=== PATIENT | female | born 1975 | race Caucasian/White ===

== ENCOUNTER → 2016-11-25 | Outpatient (CLI) | payer OTHER ==
[~2016-11-25] MED LIST: ADVIL 200MG TA200 MG PO; AFRIN NASAL SPR15 M1 NS; ALBUTEROL0.09 MG/A1 IH; AMOXICILLIN 50500 MG PO; FORTAMET1000 MG PO; GLUCOPHAGE500 MG/TAB PO; IBU800 M1 PO; LEVEMIR100 U/ML SC; LORTAB 2.5/5001 TAB; NOVOLOG FLEX100 U/ML SC; PERCOCET 325 MG1 TA2 PO; PROVENTIL0.09 MG/A1 IH; RESTORIL 1515 MG/CAP PO; SYMBICORT1 AE1; VENTOLIN0.09 MG IH; [UNRECOGNIZED DRUG - OTHER]
== END ==
LOC: COL.RAD 07:04
DX: R19.04 Left lower quadrant abdominal swelling, mass and lump (principal)
CPT/HCPCS: A9585

== ENCOUNTER 2017-02-06 08:19 | Day surgery (SDC) | payer OTHER ==
[2017-02-04 16:54] LABS: BASO # 0.1 (0.0-0.2); BASO % 0.6 % (0.0-2.0); EOS # 0.6 (0.0-0.7); EOS % 5.4 % (0-4.0); GRAN # 6.5 (1.4-6.5); GRAN % 63.5 % (42.2-75.2); HEMATOCRIT 37.6 % (37.0-47.0); HEMOGLOBIN 12.5 g/dl (12.5-16.0); LYMPH # 2.6 (1.2-3.4); LYMPH % 25.4 % (20.0-51.0); MEAN CELL VOLUME 86 fl (80.0-100.0); MEAN CORPUSCULAR HEMOGLOBIN 29 pg (27.0-31.0); MEAN CORPUSCULAR HGB CONC 33 g/dl (33.0-37.0); MEAN PLATELET VOLUME 8.7 fl (7.4-10.4); MONO # 0.5 (0.1-0.6); MONO % 4.8 % (1.7-9.3); PLATELET COUNT 398 K/mm3 (130-400); RED BLOOD COUNT 4.36 M/mm3 (4.10-5.30); REDCELL DISTRIBUTION WIDTH-CV 13.8 % (11.5-14.5); WHITE BLOOD COUNT 10.2 K/mm3 (4.8-10.8)
[2017-02-04 17:01] LABS: PH 5 (5-8); SQUAMOUS EPITHELIAL 0-2 /hpf; URINE APPEARANCE Clear; URINE BACTERIA None Seen /hpf; URINE BILIRUBIN Negative (NEGATIVE); URINE BLOOD Negative (NEGATIVE); URINE COLOR Yellow; URINE GLUCOSE 3+ (NEGATIVE); URINE KETONE Negative (NEGATIVE); URINE RBC 0-2 /hpf; URINE UROBILINOGEN Negative (NEGATIVE); URINE WBC 0-2 /hpf
[2017-02-04 17:03] LABS: ADJUSTED CALCIUM 9.3 mg/dL (8.4-10.2); ALBUMIN 4.1 gm/dL (3.5-5.0); BILIRUBIN,TOTAL 0.6 mg/dL (0.0-1.0); CALCIUM 9.4 mg/dL (8.4-10.2); CREATININE, serum 1.03 mg/dL (0.52-1.25); POTASSIUM 3.9 mmol/L (3.4-5.0); TOTAL PROTEIN 7.9 gm/dL (6.4-8.2)
[2017-02-06] VITALS (9 sets, daily range): BP systolic 106–155; BP diastolic 55–87; PULSE 67–82; TEMP 98.2–99
[~2017-02-06] VITALS: Ht 165.1 cm; Wt 80.5 kg
[~2017-02-06 08:19] MED LIST changes: -AFRIN NASAL SPR15 M1 NS; -GLUCOPHAGE500 MG/TAB PO; -IBU800 M1 PO; -PERCOCET 325 MG1 TA2 PO; -PROVENTIL0.09 MG/A1 IH
[2017-02-06] MEDS ORDERED: GLUCOPHAGE500 MG/TAB PO (09:55)
[2017-02-06] MEDS ORDERED: PROVENTIL0.09 MG/A1 IH (09:56)
[2017-02-06] MEDS ORDERED: AFRIN NASAL SPR15 M1 NS (09:57)
[2017-02-06] MEDS ORDERED: IBU800 M1 PO (12:11)
[2017-02-06] MEDS ORDERED: PERCOCET 325 MG1 TA2 PO (12:11)
[2017-02-07 01:46] VITALS: BP 107/63; PULSE 73; TEMP 97.9
[2017-02-07 05:11] VITALS: BP 106/58; PULSE 73; TEMP 98.6
[2017-02-07 09:08] VITALS: BP 114/74; PULSE 77; TEMP 98.2
== END 2017-02-07 10:29 | disposition home or self-care (01) ==
LOC: SDCO 08:19 → SURG 12:55 → SDCO 02-07 10:29
PROVIDERS: Obstetrics & Gynecology
DX: D27.1 Benign neoplasm of left ovary (principal); N83.8 Other noninflammatory disorders of ovary, fallopian tube and broad ligament
CPT/HCPCS: OP; A9284; J0690; J1100; J1815; J1885; J2270; J2405; J2550; J2704; J2710; J3010; J7120

== ENCOUNTER → 2017-07-23 | Outpatient (CLI) | payer SELFPAY ==
[~2017-07-23] MED LIST changes: +AFRIN NASAL SPR15 M1 NS; +GLUCOPHAGE500 MG/TAB PO; +IBU800 M1 PO; +PERCOCET 325 MG1 TA2 PO; +PROVENTIL0.09 MG/A1 IH
== END ==
LOC: SUN.DIA 09:52
DX: E11.9 Type 2 diabetes mellitus without complications (principal); E78.5 Hyperlipidemia, unspecified; I10 Essential (primary) hypertension; E66.9 Obesity, unspecified; Z68.29 Body mass index [BMI] 29.0-29.9, adult; Z71.3 Dietary counseling and surveillance
CPT/HCPCS: G0108

== ENCOUNTER 2018-01-23 10:06 | Emergency (ER) | payer SELFPAY ==
[~2018-01-23] VITALS: Ht 165.1 cm; Wt 86.4 kg
[2018-01-23 10:09] VITALS: BP 141/78; TEMP 100.4
[2018-01-23] MEDS ORDERED: PEN-VEE K500 MG PO (11:01)
[2018-01-23 11:13] VITALS: PULSE 104
== END 2018-01-23 11:14 | disposition home or self-care (01) ==
LOC: COL.ER 10:06
DX: J02.0 Streptococcal pharyngitis (principal); J45.909 Unspecified asthma, uncomplicated; E11.9 Type 2 diabetes mellitus without complications; Z79.84 Long term (current) use of oral hypoglycemic drugs

== ENCOUNTER 2018-11-27 23:03 | Emergency (ER) | payer SELFPAY ==
[~2018-11-27] VITALS: Ht 167.6 cm; Wt 81.4 kg
[~2018-11-27 23:03] MED LIST changes: +PEN-VEE K500 MG PO
[2018-11-27 23:07] VITALS: TEMP 99.4
[2018-11-27 23:45] LABS: BASO # 0.1 (0.0-0.2); BASO % 0.4 % (0.0-2.0); EOS # 0.1 (0.0-0.7); EOS % 0.7 % (0-4.0); GRAN # 8.7 (1.4-6.5); GRAN % 71.2 % (42.2-75.2); HEMATOCRIT 42.8 % (37.0-47.0); HEMOGLOBIN 14.3 g/dl (12.5-16.0); LYMPH # 2.4 (1.2-3.4); LYMPH % 19.2 % (20.0-51.0); MEAN CELL VOLUME 87 fl (80.0-100.0); MEAN CORPUSCULAR HEMOGLOBIN 29 pg (27.0-31.0); MEAN CORPUSCULAR HGB CONC 33 g/dl (33.0-37.0); MEAN PLATELET VOLUME 8.8 fl (7.4-10.4); PLATELET COUNT 330 K/mm3 (130-400); RED BLOOD COUNT 4.94 M/mm3 (4.10-5.30); REDCELL DISTRIBUTION WIDTH-CV 13.2 % (11.5-14.5)
[2018-11-27] MEDS ORDERED: ASPIRIN 32325 MG/TAB PO (23:56)
[2018-11-27] MEDS ORDERED: LANTUS SOLOS100 U/ML SQ ×2 (23:57→23:58)
[2018-11-27] MEDS ORDERED: AZO URINARY PAI95 MG (23:57)
[2018-11-27 23:58] LABS: ALBUMIN 4.2 gm/dL (3.5-5.0); BILIRUBIN,TOTAL 0.6 mg/dL (0.0-1.0); CALCIUM 9.6 mg/dL (8.4-10.2); CREATININE, serum 0.56 mg/dL (0.52-1.25); POTASSIUM 3.8 mmol/L (3.4-5.0); TOTAL PROTEIN 8.3 gm/dL (6.4-8.2)
[2018-11-28 00:13] LABS: COLLECTION METHOD CLEAN CATCH
[2018-11-28 00:25] LABS: MUCOUS Present /lpf; PH 5 (5-8); SQUAMOUS EPITHELIAL 0-2 /hpf; URINE APPEARANCE Cloudy; URINE BACTERIA Rare /hpf; URINE BILIRUBIN Negative (NEGATIVE); URINE BLOOD Negative (NEGATIVE); URINE COLOR Amber; URINE GLUCOSE 3+ (NEGATIVE); URINE KETONE Negative (NEGATIVE); URINE LEUKOCYTE ESTERASE 1+ (NEGATIVE); URINE NITRATE Positive (NEGATIVE); URINE PROTEIN(semi-quant) 2+ (NEGATIVE); URINE RBC 20-50 /hpf; URINE UROBILINOGEN >=4.0 mg/dL (NEGATIVE)
[2018-11-28] MEDS ORDERED: CEFTIN500 MG PO (02:12)
[2018-11-28] MEDS ORDERED: NORCO 325 MG-51 TAB PO (02:13)
[2018-11-28] MEDS ORDERED: ZOFRAN ODT4 MG PO (02:13)
[2018-11-28 02:49] VITALS: BP 121/72; PULSE 99
== END 2018-11-28 02:49 | disposition home or self-care (01) ==
LOC: COL.ER 23:03
PROVIDERS: Emergency Medicine
DX: N39.0 Urinary tract infection, site not specified (principal); N12 Tubulo-interstitial nephritis, not specified as acute or chronic; E11.9 Type 2 diabetes mellitus without complications; Z98.51 Tubal ligation status; Z79.4 Long term (current) use of insulin; Z79.82 Long term (current) use of aspirin
CPT/HCPCS: J0696; J2405; J3010; J7030; Q9967

== ENCOUNTER → 2018-12-15 | Outpatient (CLI) | payer SELFPAY ==
[~2018-12-15] MED LIST changes: +ASPIRIN 32325 MG/TAB PO; +AZO URINARY PAI95 MG; +CEFTIN500 MG PO; +LANTUS SOLOS100 U/ML SQ; +NORCO 325 MG-51 TAB PO; +ZOFRAN ODT4 MG PO
[2018-12-15 14:50] LABS: HEMATOCRIT 38.8 % (37.0-47.0); MEAN CELL VOLUME 87 fl (80.0-100.0); MEAN CORPUSCULAR HEMOGLOBIN 29 pg (27.0-31.0); MEAN CORPUSCULAR HGB CONC 34 g/dl (33.0-37.0); PLATELET COUNT 436 K/mm3 (130-400); RED BLOOD COUNT 4.45 M/mm3 (4.10-5.30); REDCELL DISTRIBUTION WIDTH-CV 13.2 % (11.5-14.5)
[2018-12-15 15:13] LABS: ALBUMIN 3.7 gm/dL (3.5-5.0); BILIRUBIN,TOTAL 0.3 mg/dL (0.0-1.0); CALCIUM 9.5 mg/dL (8.4-10.2); CREATININE, serum 0.75 mg/dL (0.52-1.25); POTASSIUM 4.6 mmol/L (3.4-5.0)
== END ==
LOC: COL.LAB 13:57
DX: Z01.89 Encounter for other specified special examinations (principal)

== ENCOUNTER → 2019-06-17 | Outpatient (CLI) | payer SELFPAY | LOC: DIA.ED 13:59 | DX: E11.9 Type 2 diabetes mellitus without complications (principal); E78.5 Hyperlipidemia, unspecified; I10 Essential (primary) hypertension; E66.9 Obesity, unspecified | CPT/HCPCS: G0108 ==

== ENCOUNTER 2019-06-30 19:16 | Emergency (ER) | payer SELFPAY ==
[~2019-06-30] VITALS: Ht 165.1 cm; Wt 80.0 kg
[2019-06-30 19:17] VITALS: TEMP 97.8
[2019-06-30 20:46] LABS: CALCIUM 8.9 mg/dL (8.4-10.2); CREATININE, serum 0.46 (0.52-1.25); POTASSIUM 3.9 mmol/L (3.4-5.0)
[2019-06-30] MEDS ORDERED: NORCO 325 MG-51 TAB PO (20:56)
[2019-06-30] MEDS ORDERED: FLEXERIL 1010 MG/TAB PO (20:56)
[2019-06-30 21:20] VITALS: BP 156/81; PULSE 80
== END 2019-06-30 21:21 | disposition home or self-care (01) ==
LOC: COL.ER 19:16
PROVIDERS: Emergency Medicine
DX: S43.51XA Sprain of right acromioclavicular joint, initial encounter (principal); S16.1XXA Strain of muscle, fascia and tendon at neck level, initial encounter; E11.9 Type 2 diabetes mellitus without complications; Z98.51 Tubal ligation status; V43.52XA Car driver injured in collision with other type car in traffic accident, initial encounter; Z79.4 Long term (current) use of insulin

== ENCOUNTER → 2019-07-12 | Outpatient (CLI) | payer SELFPAY ==
[~2019-07-12] MED LIST changes: +FLEXERIL 1010 MG/TAB PO
[2019-07-12 14:33] LABS: CHOLESTEROL RISK RATIO 7.5
[2019-07-14 12:27] LABS: THYROID STIMULATING HORMONE 2.66 uIU/mL (0.465-4.680)
== END ==
LOC: COL.RAD 13:19
PROVIDERS: Nurse Practitioner Family
DX: E04.1 Nontoxic single thyroid nodule (principal)

== ENCOUNTER → 2019-07-22 | Outpatient (CLI) | payer SELFPAY ==
[~2019-07-22] VITALS: Ht 165.1 cm; Wt 74.5 kg
[~2019-07-22] MED LIST changes: +GLUCOPHAGE1000 MG PO
[2019-07-22 12:41] VITALS: BP 148/85; PULSE 78
[2019-07-22 13:35] VITALS: BP 158/90; PULSE 87
--- NOTE | 2019-07-22 13:55 | NUR ---
PT AND FRIEND ARE TAKEN DOWN [facility] FR[facility] LOBBY AND THEY LEAVE AMBULATORY TO POV
== END ==
LOC: COL.RAD 12:27
DX: E04.9 Nontoxic goiter, unspecified (principal)

== ENCOUNTER → 2019-10-13 | Outpatient (CLI) | payer SELFPAY | LOC: DIA.ED 11:20 | DX: E11.9 Type 2 diabetes mellitus without complications (principal); E78.5 Hyperlipidemia, unspecified; E66.9 Obesity, unspecified; I10 Essential (primary) hypertension | CPT/HCPCS: G0108 ==

== ENCOUNTER → 2019-10-18 | Outpatient (CLI) | payer SELFPAY ==
[2019-10-18 12:59] LABS: PROTHROMBIN TIME 11.9 SECONDS (9.7-12.8)
== END ==
LOC: COL.LAB 12:38
DX: T14.8XXA Other injury of unspecified body region, initial encounter (principal)

== ENCOUNTER → 2020-04-02 | Outpatient (CLI) | payer SELFPAY | LOC: DIA.ED 01-11 13:34 | DX: E11.9 Type 2 diabetes mellitus without complications (principal); Z79.4 Long term (current) use of insulin; E66.8 Other obesity; E78.5 Hyperlipidemia, unspecified; I10 Essential (primary) hypertension | CPT/HCPCS: G0108 ==

== ENCOUNTER → 2020-04-30 | Outpatient (CLI) | payer SELFPAY | LOC: COL.RAD 11:56 | DX: D25.9 Leiomyoma of uterus, unspecified (principal); Z90.721 Acquired absence of ovaries, unilateral ==

== ENCOUNTER 2021-01-24 11:37 | Emergency (ER) | payer OTHER ==
[~2021-01-24] VITALS: Ht 170.2 cm; Wt 87.3 kg
[2021-01-24] MEDS ORDERED: PREDNISONE20 MG PO (12:30)
[2021-01-24 12:55] VITALS: BP 118/67; PULSE 88; TEMP 97.7
== END 2021-01-24 13:00 | disposition home or self-care (01) ==
LOC: COL.ER 11:37
DX: J45.901 Unspecified asthma with (acute) exacerbation (principal); Z20.822 Contact with and (suspected) exposure to COVID-19; Z79.4 Long term (current) use of insulin; Z79.51 Long term (current) use of inhaled steroids
CPT/HCPCS: J7512

== ENCOUNTER 2021-02-25 16:23 | Emergency (ER) | payer SELFPAY ==
[~2021-02-25] VITALS: Ht 167.6 cm; Wt 87.3 kg
[~2021-02-25 16:23] MED LIST changes: +PREDNISONE20 MG PO
[2021-02-25 16:50] VITALS: TEMP 98.2
[2021-02-25 18:15] LABS: BASO # 0.1 (0.0-0.2); BASO % 0.6 % (0.0-2.0); EOS # 0.8 (0.0-0.7); EOS % 7.7 % (0-4.0); GRAN # 5.4 (1.4-6.5); GRAN % 53.9 % (42.2-75.2); HEMOGLOBIN 10.1 g/dl (12.5-16.0); LYMPH # 3.1 (1.2-3.4); LYMPH % 30.6 % (20.0-51.0); MEAN CELL VOLUME 79 fl (80.0-100.0); MEAN CORPUSCULAR HEMOGLOBIN 24 pg (27.0-31.0); MEAN CORPUSCULAR HGB CONC 31 g/dl (33.0-37.0); MEAN PLATELET VOLUME 8.3 fl (7.4-10.4); MONO # 0.7 (0.1-0.6); MONO % 6.9 % (1.7-9.3); PLATELET COUNT 482 K/mm3 (130-400); RED BLOOD COUNT 4.16 M/mm3 (4.10-5.30); REDCELL DISTRIBUTION WIDTH-CV 16.5 % (11.5-14.5)
[2021-02-25 18:18] LABS: HEMATOCRIT 32.7 % (37.0-47.0)
[2021-02-25 18:31] LABS: ALBUMIN 3.9 gm/dL (3.5-5.0); BILIRUBIN,TOTAL 0.2 mg/dL (0.0-1.0); CALCIUM 9.3 mg/dL (8.4-10.2); CREATININE, serum 0.48 (0.52-1.25); POTASSIUM 4.2 mmol/L (3.4-5.0); TOTAL PROTEIN 7.4 gm/dL (6.4-8.2)
[2021-02-25] MEDS ORDERED: NEB MC (18:54)
[2021-02-25] MEDS ORDERED: IPRATROPIUM BROM3 M1 IH (18:54)
[2021-02-25] MEDS ORDERED: PREDNISONE50 MG PO (18:55)
[2021-02-25 19:06] VITALS: BP 133/79; PULSE 91
== END 2021-02-25 19:06 | disposition home or self-care (01) ==
LOC: COL.ER 16:23
PROVIDERS: Physician Assistant
DX: J45.901 Unspecified asthma with (acute) exacerbation (principal); E11.9 Type 2 diabetes mellitus without complications; Z79.52 Long term (current) use of systemic steroids; Z86.16 Personal history of COVID-19; Z79.4 Long term (current) use of insulin
CPT/HCPCS: J1100

== ENCOUNTER 2022-04-01 12:31 | Emergency (ER) | payer SELFPAY ==
[~2022-04-01] VITALS: Ht 167.6 cm; Wt 91.8 kg
[~2022-04-01 12:31] MED LIST changes: +IPRATROPIUM BROM3 M1 IH; +NEB MC; +PREDNISONE50 MG PO; +PROTONIX 40MG T40 MG PO
[2022-04-01 12:42] VITALS: TEMP 98
[2022-04-01 13:35] LABS: COLLECTION METHOD CLEAN CATCH
[2022-04-01 13:40] LABS: BASO # 0.1 K/mm3 (0.0-0.2); BASO % 0.6 % (0.0-2.0); EOS # 0.5 K/mm3 (0.0-0.7); EOS % 5.1 % (0.0-4.0); GRAN # 5.3 K/mm3 (1.4-6.5); GRAN % 56.6 % (42.2-75.2); HEMATOCRIT 40.3 % (37.0-47.0); HEMOGLOBIN 13.1 g/dl (12.5-16.0); LYMPH # 3.1 K/mm3 (1.2-3.4); LYMPH % 32.4 % (20.0-51.0); MEAN CELL VOLUME 82 fl (80.0-100.0); MEAN CORPUSCULAR HEMOGLOBIN 27 pg (27-31); MEAN CORPUSCULAR HGB CONC 33 g/dl (33.0-37.0); MONO # 0.5 K/mm3 (0.1-0.6); MONO % 5.1 % (1.7-9.3); PLATELET COUNT 433 K/mm3 (130-400); RED BLOOD COUNT 4.92 M/mm3 (4.10-5.30); REDCELL DISTRIBUTION WIDTH-CV 15.5 % (11.5-14.5)
[2022-04-01 13:41] LABS: MUCOUS Present (NOT PRESENT); PH 5 (5-8); URINE APPEARANCE Hazy (CLEAR/HAZY); URINE BACTERIA None Seen /hpf (NONE SEEN); URINE BILIRUBIN Negative (NEGATIVE); URINE BLOOD Negative (NEGATIVE); URINE COLOR Yellow (YELLOW); URINE GLUCOSE 1+ (NEGATIVE); URINE KETONE Negative (NEGATIVE); URINE LEUKOCYTE ESTERASE Negative (NEGATIVE); URINE NITRATE Negative (NEGATIVE); URINE PROTEIN(semi-quant) Negative (NEGATIVE); URINE RBC 0-2 /hpf (0-2); URINE UROBILINOGEN Negative (NEGATIVE)
[2022-04-01 13:48] LABS: ACETONE,SERUM NEGATIVE
[2022-04-01 13:54] LABS: ALANINE AMINOTRANSFERASE 11 U/L (0-55); ALBUMIN 3.9 gm/dL (3.5-5.0); ALKALINE PHOSPHATASE 86 U/L (40-150); ANION GAP 12 mmol/L (7-16); AST,SGOT 15 U/L (5-34); BILIRUBIN,TOTAL 0.3 mg/dL (0.2-1.2); BLOOD UREA NITROGEN 11 mg/dL (7-19); CALCIUM 9.5 mg/dL (8.4-10.2); CARBON DIOXIDE 21 mmol/L (22-29); CHLORIDE 103 mmol/L (98-107); CREATININE, serum 0.72 mg/dL (0.57-1.11); GLUCOSE 198 mg/dL (70-99); POTASSIUM 4.3 mmol/L (3.5-4.5); SODIUM 136 mmol/L (136-145); TOTAL PROTEIN 7.7 gm/dL (6.2-8.1)
[2022-04-01] MEDS ORDERED: ZOFRAN ODT4 MG PO (14:37)
[2022-04-01 14:50] VITALS: BP 146/91; PULSE 81
== END 2022-04-01 14:50 | disposition home or self-care (01) ==
LOC: COL.ER 12:31
PROVIDERS: Emergency Medicine
DX: R51.9 Headache, unspecified (principal); R11.2 Nausea with vomiting, unspecified; Z20.822 Contact with and (suspected) exposure to COVID-19; Z28.310 Unvaccinated for COVID-19; Z32.02 Encounter for pregnancy test, result negative
CPT/HCPCS: J1200; J1885; J2765; J7030

== ENCOUNTER → 2022-09-29 | Outpatient (CLI) | payer OTHER | LOC: MC.RAD 12:48 | DX: N64.52 Nipple discharge (principal); N63.20 Unspecified lump in the left breast, unspecified quadrant ==